=== PATIENT | female | born 1955 ===

== ENCOUNTER 2023-01-11 16:02 | Emergency (ER) | payer OTHER ==
[~2023-01-11] VITALS: Ht 165.1 cm; Wt 105.0 kg
[2023-01-11] MEDS ORDERED: ACETAMINOPHEN 500 MG TABLET PO ONE (16:15)
[2023-01-11 16:23] VITALS: BP 164/94
== END 2023-01-11 17:44 | disposition home or self-care (01) ==
LOC: EMS 16:07
DX: S00.83XA Contusion of other part of head, initial encounter (principal); Z90.89 Acquired absence of other organs; Z88.0 Allergy status to penicillin; Z88.5 Allergy status to narcotic agent; Y04.2XXA Assault by strike against or bumped into by another person, initial encounter; Y93.89 Activity, other specified; Y92.89 Other specified places as the place of occurrence of the external cause; Y99.8 Other external cause status
CPT/HCPCS: 70450; 70486; 72125; 99284